=== PATIENT | female | born 1980 | race Caucasian/White ===

== ENCOUNTER 2016-07-04 13:56 | Observation (INO) | payer MEDICARE ==
[~2016-07-04 13:56] MED LIST: ADVAIR 250/501 DISK INH; ALBUTEROL2.5 MG/3 M INH; ALLEGRA 60 MG T60 MG PO; ALLEGRA-D1 TAB.SR1 PO; FLORASTOR250 MG PO; FLUTICASONE PRO16 GM PO; IBUPROFEN800 MG PO; IPRAT-ALBUT 0.5-3 ML UPD; LAMICTAL200 MG PO; LITHIUM CARBON150 MG PO; MUCINEX DM ER1 EAC1 PO; OMNICEF300 MG PO; ONDANSETRON4 MG/2 M3 IV; PREDNISONE10 MG PO; PREDNISONE20 MG PO; PROZAC20 MG PO; SINGULAIR10 MG PO; VALIUM 2 MG TAB2 MG PO; ZPAK PO
[2016-07-04 15:19] LABS: BASOPHILS 0.6 % (0.0-2.0); EOSINOPHILS 7.1 % (0-7); HEMATOCRIT 43.7 % (36.0-48.0); HEMOGLOBIN 14.7 g/dL (12-16); IMMATURE GRANULOCYTES 0.4 % (0-5); LYMPHOCYTES 25.6 % (15-50); MCH 31.6 pg (26.0-34.0); MCHC 33.6 g/dL (31.0-37.0); MEAN PLATELET VOLUME 11.2 fL (7.4-10.4); MONOCYTES 11.4 % (2-11); NEUTROPHILS 54.9 % (40-80); PLATELET COUNT 273 10x3/uL (130-400); RBC 4.65 10x6/uL (4.00-5.40); RDW 12.7 % (11.5-14.5)
[2016-07-04 15:39] LABS: ALBUMIN 3.4 g/dL (3.4-5.0); ALKALINE PHOSPHATASE 66 U/L (46-116); ALT (SGPT) 80 U/L (10-68); CALC OSMOLALITY 279 mosm/kg (275-300); CARBON DIOXIDE 26.1 mmol/L (21.0-32.0); CHLORIDE - SERUM 103 mmol/L (98-107); POTASSIUM - SERUM 3.7 mmol/L (3.5-5.1); PROTEIN - SERUM 7.2 g/dL (6.4-8.2); SODIUM 139 mmol/L (136-145); UREA NITROGEN 17 mg/dL (7-18); eGFR NON AFRICAN AMERICAN 67 mL/min (90-120)
[2016-07-04 15:41] LABS: GLUCOSE 100 mg/dL (74-106)
[2016-07-04 15:49] LABS: PRO BNP 50 pg/mL (0-125)
[2016-07-04 15:50] LABS: CREATINE KINASE 8278 UL (21-215); TROPONIN-I < 0.017 ng/mL (0.000-0.060)
[2016-07-04 16:12] LABS: CKMB 1.7 U/L (0.0-3.6)
--- NOTE | 2016-07-04 18:54 | NUR ---
RECEIVED VIA WHEELCHAIR TO ROOM FROM THE ED. WILL ADMIT
--- NOTE | 2016-07-04 19:00 | NUR ---
PATIENT STATES THAT THESE ARE NOT ALL HER MEDS AND SHE WILL GET US A LIST AFTER SHE EATS. WILL PASS THIS ALONG TO THE NEXT NURSE.
[2016-07-04 20:00] VITALS: BP 163/94
--- NOTE | 2016-07-04 21:23 | NUR ---
RESTING IN BED TALKING ON PHONE. ALERT ORIENTED CONVERSANT. DENIES NEEDS. NO ACUTE DISTRESS NOTED.
--- NOTE | 2016-07-04 22:22 | NUR ---
CONTACTED [facility] TO REQUEST PT HOME VALIUM BE RESTARTED. WAS INSTRUCTED TO ENTER CONSULT FOR PULMONOLOGY.
[2016-07-05] VITALS: BP 108/60
--- NOTE | 2016-07-05 01:37 | NUR ---
PT NOW STATING THAT SHE DOES NOT WANT VALIUM BECAUSE OF ANXIETY. STATED THAT SHE WANTS IT BECAUSE OF ALL THE STEROIDS SHES ON.
--- NOTE | 2016-07-05 02:09 | NUR ---
LYING IN BED WITH EYES CLOSED, CALL LIGHT IN REACH. WILL CONTINUE WITH PLAN OF CARE.
[2016-07-05 04:00] VITALS: BP 115/77
[2016-07-05] MEDS ORDERED: HYDROCODON-ACE1 EAC7 PO (05:12)
[2016-07-05] MEDS ORDERED: VALIUM5 MG PO (05:13)
[2016-07-05] MEDS ORDERED: ADDERALL XR 3030 MG PO (05:13)
[2016-07-05] MEDS ORDERED: LITHIUM CARB CAP 300 PO (05:15)
[2016-07-05] MEDS ORDERED: IBUPROFEN800 MG PO (05:16)
[2016-07-05] MEDS ORDERED: TEMAZEPAM30 MG PO (05:19)
[2016-07-05 05:25] LABS: BASOPHILS 0 % (0.0-2.0); EOSINOPHILS 0 % (0-7); HEMATOCRIT 42.3 % (36.0-48.0); HEMOGLOBIN 14.3 g/dL (12-16); IMMATURE GRANULOCYTES 0.2 % (0-5); LYMPHOCYTES 10.3 % (15-50); MCHC 33.8 g/dL (31.0-37.0); MEAN PLATELET VOLUME 11.5 fL (7.4-10.4); MONOCYTES 2.3 % (2-11); NEUTROPHILS 87.2 % (40-80); PLATELET COUNT 276 10x3/uL (130-400); RBC 4.61 10x6/uL (4.00-5.40); RDW 12.4 % (11.5-14.5); WBC 8.5 10x3/uL (4.8-10.8)
[2016-07-05 05:35] LABS: MCV 91.8 fL (80.0-100.0)
[2016-07-05 06:06] LABS: CALC OSMOLALITY 277 mosm/kg (275-300); CALCIUM 8.8 mg/dL (8.5-10.1); CHLORIDE - SERUM 103 mmol/L (98-107); CKMB 1.4 U/L (0.0-3.6); GLUCOSE 134 mg/dL (74-106); POTASSIUM - SERUM 3.3 mmol/L (3.5-5.1); SODIUM 138 mmol/L (136-145); UREA NITROGEN 13 mg/dL (7-18)
[2016-07-05 06:15] LABS: CREATINE KINASE 5159 UL (21-215); CREATININE - SERUM 0.7 mg/dL (0.6-1.3); TROPONIN-I < 0.017 ng/mL (0.000-0.060); eGFR NON AFRICAN AMERICAN > 90 mL/min (90-120)
--- NOTE | 2016-07-05 08:02 | NUR ---
ASSESSMENT DONE. PT SLEEPING. EASILY AWAKEN. DENIES NEEDS. STATES "I JUST WANT TO 'FUCKING' GO HOME." PT REFUSING TO WEAR O2. REFUSES TO ALLOW NURSE TO ASSESS IV OR LISTEN TO LUNGS. CALL LIGHT WITH IN REACH. WILL CONT. TO MONITOR. PT'S BREAKFAST TRAY SITTING ON BEDSIDE TABLE.
[2016-07-05 08:06] VITALS: BP 126/61
--- NOTE | 2016-07-05 09:25 | NUR ---
PT SITTING UP IN BED WHEN NURSE ENTERED ROOM. STATES " DO I NOT GET ANY "GODDAMN" FOOD. NURSE EXPLAINED TO PT THAT HER BREAKFAST WAS IN THE ROOM SITTING ON THE BEDSIDE TABLE EARLIER WHEN NURSE FIRST ENTERED ROOM. PT STATES " WELL, DO THEY JUST COME IN AND TAKE IT WITHOUT SAYING SOMETHING FIRST." NURSE STATES KITCHEN STAFF WILL USUALLY ASK IF PT'S WISH TO KEEP THEIR TRAY OR NOT. PT REFUSES TO TAKE PO MEDS WITH OUT FOOD. NURSE OFFERED 3 DIFFERENT TIMES TO GET PT MORE FOOD. PT REFUSED EACH TIME. PT STATES "I JUST WANT THE FUCK OUT OF THE GODDAMN PLACED." NURSE PLACED CALL LIGHT WITH IN PT'S REACH AND ENCOURAGED PT TO CALL WITH NEEDS. REPORTED PT'S ACTIONS TO TY RN/BIOLOGICAL SCIENCES PROFESSOR.
--- NOTE | 2016-07-05 11:11 | NUR ---
NURSE WENT INTO PT'S ROOM. PT SITTING UP IN BED TALKING ON CELL PHONE AND STATES " I AM TRYING TO CALL MY REAL DOCTOR, DR. MARRERO, SO HE CAN CALL THIS DOCTOR BITCH UP HERE AND GET ME MY ANXIETY MEDICATION ORDERED." PT WENT ON TO SAY " I HATE THIS FUCKING PLACE. YOU GUYS WON'T EVEN FEED ME!" NURSE REMINDED PT THAT THIS NURSE OFFERED TO GET HER A NEW BREAKFAST TRAY 3 DIFFERENT TIMES AND SHE REFUSED. NURSE ATTEMPTED TO REMIND PT THAT WE WERE HERE TO HELP HER, AND I LET HER KNOW I TALKED TO DR. PAIGE ABOUT HER AND HE WOULD BE HERE SOON TO SEE HER. SHE WOULD NOT STOP CURSING OR YELLING THE ENTIRE TIME THIS NURSE WAS TRYING TO EMPATHIZE ABOUT THE SITUATION. NURSE FINALLY TOLD PT THAT I WAS NOT GOING TO STAY IN THE ROOM WITH HER AND LISTEN TO HER YELL AND CURSE OUR FACILITY AND DOCTOR. NURSE TOLD PT TO USE CALL BUTTON WHEN SHE WAS READY TO TALK, AND THAT THIS NURSE WOULD BE HAPPY TO ASSIST IN WHATEVER I COULD HELP WITH. PIGMENT FURNACE TENDER TOLD THIS NURSE THAT PT REQUESTED A NEW NURSE. TY RN/HUMAN RESOURCES TALENT MANAGER NOTIFIED OF THIS.
--- NOTE | 2016-07-05 11:37 | NUR ---
PATIENT REFUSED AM MEDS THIS MORNING BUT WANTS THEM NOW. ADMINISTERED HER AM MEDS.
[2016-07-05 12:00] VITALS: BP 118/71
--- NOTE | 2016-07-05 13:16 | NUR ---
RATIONALE FOR SCD'S EXPLAINED. REFUSED SCD'S
[2016-07-05 13:43] LABS: ALBUMIN 3.2 g/dL (3.4-5.0); BILIRUBIN - DIRECT 0.07 mg/dL (0.00-0.30); BILIRUBIN - INDIRECT 0.13 mg/dL (0.00-1.00); BILIRUBIN - TOTAL 0.2 mg/dL (0.2-1.3); PROTEIN - SERUM 6.3 g/dL (6.4-8.2)
[2016-07-05] MEDS ORDERED: PREDNISONE10 MG PO (15:52)
[2016-07-05 15:56] LABS: ALBUMIN 3.5 g/dL (3.4-5.0); ALKALINE PHOSPHATASE 63 U/L (46-116); ALT (SGPT) 82 U/L (10-68); BILIRUBIN - DIRECT 0.07 mg/dL (0.00-0.30); BILIRUBIN - INDIRECT 0.13 mg/dL (0.00-1.00); CREATINE KINASE 3240 UL (21-215); PROTEIN - SERUM 7.4 g/dL (6.4-8.2); TROPONIN-I < 0.017 ng/mL (0.000-0.060)
[2016-07-05 16:00] VITALS: BP 145/81
--- NOTE | 2016-07-05 16:45 | NUR ---
DC TEACHING COMPLETE AND IV REMOVED NO OTHER NEEDS AT THIS ITME. WILL CONTINUE TO MONITOR.
== END 2016-07-05 17:01 | disposition home or self-care (01) ==
LOC: D.ER 13:56 → D.M2 17:56 → OBSVTIME 17:56 → D.M2 07-05 17:01
PROVIDERS: Emergency Medicine; Nurse Practitioner Family; ADMIT Family Medicine
DX: J45.901 Unspecified asthma with (acute) exacerbation (principal); F41.9 Anxiety disorder, unspecified; F31.9 Bipolar disorder, unspecified

== ENCOUNTER 2017-05-19 13:09 | Emergency (ER) | payer MEDICARE ==
[~2017-05-19 13:09] MED LIST changes: +ADDERALL XR 3030 MG PO; +HYDROCODON-ACE1 EAC7 PO; +LITHIUM CARB CAP 300 PO; +TEMAZEPAM30 MG PO; +VALIUM5 MG PO
== END 2017-05-19 19:33 | disposition home or self-care (01) ==
LOC: D.ER 13:09
DX: J45.901 Unspecified asthma with (acute) exacerbation (principal)

== ENCOUNTER 2019-04-23 15:09 | Inpatient (IN) | payer MEDICARE ==
[~2019-04-23] VITALS: Ht 167.6 cm; Wt 87.3 kg
[2019-04-23 15:28] LABS: BASOPHILS 0.4 % (0-2); EOSINOPHILS 5.6 % (0-7); HEMOGLOBIN 15.7 g/dL (12-16); IMMATURE GRANULOCYTES 0.4 % (0-5); LYMPHOCYTES 23.1 % (15-50); MCH 31.6 pg (26.0-34.0); MCHC 34.1 g/dL (31.0-37.0); MCV 92.6 fL (80.0-100.0); MONOCYTES 13.3 % (2-11); NEUTROPHILS 57.2 % (40-80); PLATELET COUNT 319 10x3/uL (130-400); RBC 4.97 10x6/uL (4.00-5.40); RDW 12.8 % (11.5-14.5); WBC 14.6 10x3/uL (4.8-10.8)
[2019-04-23 15:42] LABS: APTT 29.2 SECONDS (22.8-39.4); INR 1.02 (0.85-1.17); PROTIME 12.9 SECONDS (11.6-15.0)
[2019-04-23 15:47] LABS: CALC OSMOLALITY 277 mosm/kg (275-300); CALCIUM 9.2 mg/dL (8.5-10.1); CHLORIDE - SERUM 101 mmol/L (98-107); CREATININE - SERUM 0.7 mg/dL (0.6-1.3); GLUCOSE 94 mg/dL (74-106); SODIUM 138 mmol/L (136-145); UREA NITROGEN 17 mg/dL (7-18); eGFR NON AFRICAN AMERICAN > 90 mL/min (90-120)
[2019-04-23 15:59] LABS: ALBUMIN 3.4 g/dL (3.4-5.0); ALKALINE PHOSPHATASE 96 U/L (46-116); ALT (SGPT) 65 U/L (10-68); BILIRUBIN - TOTAL 0.45 mg/dL (0.2-1.3); CKMB 4.2 U/L (0.0-3.6); CREATINE KINASE 207 UL (21-215); PRO BNP 163 pg/mL (0-125); PROTEIN - SERUM 7.8 g/dL (6.4-8.2)
[2019-04-23 16:00] LABS: TROPONIN-I < 0.017 ng/mL (0.000-0.060)
--- NOTE | 2019-04-23 17:30 | NUR ---
MAGNESIUM INFUSION INITIATED AT 1540, COMPLETE AT 1640.
[2019-04-23 17:49] VITALS: BP 142/61
--- NOTE | 2019-04-23 18:14 | NUR ---
PT LYING IN BED, RESPIRATIONS EVEN AND UNLABORED. O2 IN PLACE AT 2LPM. IV INFUSING ORDERED WITHOUT SIGNS OF INFILTRATION. CALL LIGHT IN REACH, PT DENIES ANY NEEDS. WILL CONTINUE TO MONITOR.
--- NOTE | 2019-04-23 19:00 | NUR ---
HAND OFF REPORT GIVEN TO SHERINE GRIJALVA
--- NOTE | 2019-04-23 19:35 | MORECARE ---
CASE MANAGEMENT DISCHARGE SUMMARY PATIENT: JYTOI HURST UNIT: [id number] ADM DATE: 04/23/19 AGE: 39 : 82 SEX: F ROOM/BED: D.1205 AUTHOR: GENNA,DOC PHYSICIAN: REFERRING PHYSICIAN: DONY MOREJON MD DATE OF SERVICE: 04/23/19 Discharge Plan Patient Name: JYOTI HURST Facility: [facility]:[place] : 1980 Planned Disposition: Home Anticipated Discharge Date: 04/26/19 Discharge Date: Expected LOS: 3 Initial Reviewer: [email or web address] Initial Review Date: 04/23/2019 Generated: 04/23/19 8:35 pm DCP- Discharge Planning Updated by [email or web address]: Maye Smith on 04/23/19 6:[address] DC PLAN: Return home with her significant other independently. ANTICIPATED DC NEEDS: Denied known dc needs. CM met with patient to complete initial dc planning assessment. CM educated patient on the CM role and verbal consent given by patient to complete assessment. CM verified patient's address, phone number, and emergency contact phone numbers. Patient lives at home with her significant other. She reports she is independent in her care and is able to work. At discharge patient plans to return home and feels this is a safe discharge. CM discussed availability of home health, rehab services, and medical equipment. Patient denied known discharge needs at this time. Transportation provider at discharge will be her significant other. CM will continue to follow and will assist as needed with dc plans/needs. aMye Smith RN, [facility] DCPIA - Discharge Planning Initial Assessment Updated by [email or web address]: Maye Smith on 04/23/19 7:30 pm * Is the patient Alert and Oriented? Yes * How many steps to enter\exit or inside your home? 14 * PCP Dr. Jin in [place] * Pharmacy [facility] * Preadmission Environment Home with Family * ADLs Independent * Equipment Nebulizer * List name and contact numbers for known caregivers / representatives who currently or will assist patient after discharge: Clarisa Matt - sig other - [phone] * Verbal permission to speak to the caregivers and representatives has been obtained from the patient. Yes * Community resources currently utilized None * Additional services required to return to the preadmission environment? No * Can the patient safely return to the preadmission environment? Yes * Has this patient been hospitalized within the prior 30 days at any hospital? No Patient Name: JYOTI HURST Page [id number] at 193 All edits/amendments must be made on the electronic document DICTATION DATE: 04/23/191934 STORE TEAM MEMBER: LIZA 04/23/191934 RPT#: [id number] DC DATE: STATUS: ADM IN [facility] [address] [place] [address] END OF REPORT
[2019-04-23 20:20] VITALS: BP 121/82; Ht 167.6 cm; Wt 87.3 kg
[2019-04-23 20:30] VITALS: BP 121/82
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
[2019-04-24 00:09] VITALS: BP 124/80
[2019-04-24 04:17] VITALS: BP 126/79
[2019-04-24 07:29] VITALS: BP 116/56
[2019-04-24 08:44] LABS: BASOPHILS 0 % (0-2); EOSINOPHILS 0 % (0-7); IMMATURE GRANULOCYTES 0.3 % (0-5); MCH 31.4 pg (26.0-34.0); MCHC 34.1 g/dL (31.0-37.0); MCV 92.1 fL (80.0-100.0); MEAN PLATELET VOLUME 10.8 fL (7.4-10.4); MONOCYTES 1.1 % (2-11); NEUTROPHILS 91.6 % (40-80); PLATELET COUNT 272 10x3/uL (130-400); RBC 4.78 10x6/uL (4.00-5.40); RDW 12.8 % (11.5-14.5); WBC 15.9 10x3/uL (4.8-10.8)
[2019-04-24 09:04] LABS: CALC OSMOLALITY 282 mosm/kg (275-300); CALCIUM 8.9 mg/dL (8.5-10.1); CARBON DIOXIDE 26.2 mmol/L (21.0-32.0); CHLORIDE - SERUM 102 mmol/L (98-107); CREATININE - SERUM 0.8 mg/dL (0.6-1.3); GLUCOSE 212 mg/dL (74-106); MAGNESIUM - SERUM 2.1 mg/dL (1.8-2.4); PHOSPHOROUS 3.1 mg/dL (2.5-4.9); POTASSIUM - SERUM 3.2 mmol/L (3.5-5.1); SODIUM 138 mmol/L (136-145); UREA NITROGEN 16 mg/dL (7-18); eGFR NON AFRICAN AMERICAN 85 mL/min (90-120)
--- NOTE | 2019-04-24 09:52 | NUR ---
PT ALERT X 4. BREATH SOUNDS CLEAR BILAT. TELEMETRY IN PLACE. PT REPORTING IMPROVED CONDITION. IV TO RIGHT AC, SALINE LOCKED. PT REPORTING NO PAIN AT THIS TIME. BED LOW, CALL LIGHT IN REACH. NO OTHER NEEDS AT THIS TIME.
[2019-04-24 12:20] VITALS: BP 140/76
[2019-04-24 15:54] VITALS: BP 121/82
--- NOTE | 2019-04-24 17:04 | MORECARE ---
CASE MANAGEMENT DISCHARGE SUMMARY PATIENT: JYOTI HURST UNIT: [id number] ADM DATE: 04/23/19 AGE: 39 : 82 SEX: F ROOM/BED: D.1205 AUTHOR: OZZIE VAIL PHYSICIAN: REFERRING PHYSICIAN: DONY MOREJON MD DATE OF SERVICE: 04/24/19 Discharge Plan Patient Name: JYOTI HURST Facility: [facility]:[place] : 1980 Planned Disposition: Home Anticipated Discharge Date: 04/26/19 Discharge Date: Expected LOS: 3 Initial Reviewer: [email or web address] Initial Review Date: 04/23/2019 Generated: 04/24/19 6:04 pm Comments DCP- Discharge Planning Updated by [email or web address]: Bre Mcgee on 04/24/19 3:[address] Patient Name: JYOTI HURST Admission Status: ER Accout number: [id number] Admission Date: 04-23-2019 : 1980 Admission Diagnosis: Attending: DONY MOREJON Current LOS: 1 Anticipated DC Date: 04-26-2019 Planned Disposition: Home Primary Insurance: MEDICARE A & B Discharge Planning Comments: PATIENT IS CRYING, STATES SHE REALLY NEEDS TO DISCHARGE TODAY. STATES SHE HAS TO WORK TOMORROW, STATES SHE HAS NO CHOICE. STATES SHE HAS NEBS AND DUONEBS AT HOME, AND IS BETTER TODAY. PRIMARY NURSE IS AWARE AND DR. PAIGE AND DR. MOREJON HAVE BEEN PAGED. CM TO FOLLOW AND ASSIST NEEDED. Firearms Instructor: Bre Mcgee DCP- Discharge Planning Updated by [email or web address]: Maye Smith on 04/23/19 6:[address] DC PLAN: Return home with her significant other independently. ANTICIPATED DC NEEDS: Denied known dc needs. CM met with patient to complete initial dc planning assessment. CM educated patient on the CM role and verbal consent given by patient to complete assessment. CM verified patient's address, phone number, and emergency contact phone numbers. Patient lives at home with her significant other. She reports she is independent in her care and is able to work. At discharge patient plans to return home and feels this is a safe discharge. CM discussed availability of home health, rehab services, and medical equipment. Patient denied known discharge needs at this time. Transportation provider at discharge will be her significant other. CM will continue to follow and will assist as needed with dc plans/needs. Maye Smith RN, [facility] DCPIA - Discharge Planning Initial Assessment Updated by [id number]: Maye Smith on 04/23/19 7:30 pm * Is the patient Alert and Oriented? Yes * How many steps to enter\exit or inside your home? 14 * PCP Dr. Jin in [place] * Pharmacy [facility] * Preadmission Environment Home with Family * ADLs Independent * Equipment Nebulizer * List name and contact numbers for known caregivers / representatives who currently or will assist patient after discharge: [facility] Matt - sig other - [phone] * Verbal permission to speak to the caregivers and representatives has been obtained from the patient. Yes * Community resources currently utilized None * Additional services required to return to the preadmission environment? No * Can the patient safely return to the preadmission environment? Yes * Has this patient been hospitalized within the prior 30 days at any hospital? No Last DP export: 04/23/19 6:35 Patient Name: JYOTI HURST Page 15541 at 1704 All edits/amendments must be made on the electronic document DICTATION DATE: 04/24/191703 GROMMET WORKER: LIZA 04/24/191703 RPT#: [id number] DC DATE: STATUS: ADM IN [facility] [address] [place] [address] END OF REPORT
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
--- NOTE | 2019-04-25 09:04 | MORECARE ---
CASE MANAGEMENT DISCHARGE SUMMARY PATIENT: JYOTI HURST UNIT: [id number] ADM DATE: 04/23/19 AGE: 39 : 82 SEX: F ROOM/BED: D.1205 AUTHOR: OZZIE VAIL PHYSICIAN: REFERRING PHYSICIAN: DONY MOREJON MD DATE OF SERVICE: 04/25/19 Discharge Plan Patient Name: JYOTI HURST Facility: [facility]:[place] : 1980 Planned Disposition: Home Anticipated Discharge Date: 04/26/19 Discharge Date: 04/24/2019 Expected LOS: 3 Initial Reviewer: [email or web address] Initial Review Date: 04/23/2019 Generated: 04/25/19 10:04 am Comments DCP- Discharge Planning Updated by [email or web address]: Bre Mcgee on 04/24/19 3:[address] Patient Name: JYOTI HURST Admission Status: ER Accout number: [id number] Admission Date: 04-23-2019 : 1980 Admission Diagnosis: Attending: DONY MOREJON Current LOS: 1 Anticipated DC Date: 04-26-2019 Planned Disposition: Home Primary Insurance: MEDICARE A & B Discharge Planning Comments: PATIENT IS CRYING, STATES SHE REALLY NEEDS TO DISCHARGE TODAY. STATES SHE HAS TO WORK TOMORROW, STATES SHE HAS NO CHOICE. STATES SHE HAS NEBS AND DUONEBS AT HOME, AND IS BETTER TODAY. PRIMARY NURSE IS AWARE AND DR. PAIGE AND DR. MOREJON HAVE BEEN PAGED. CM TO FOLLOW AND ASSIST NEEDED. Whistle Punk: Bre Mcgee DCP- Discharge Planning Updated by [email or web address]: Maye Smith on 04/23/19 6:[address] DC PLAN: Return home with her significant other independently. ANTICIPATED DC NEEDS: Denied known dc needs. CM met with patient to complete initial dc planning assessment. CM educated patient on the CM role and verbal consent given by patient to complete assessment. CM verified patient's address, phone number, and emergency contact phone numbers. Patient lives at home with her significant other. She reports she is independent in her care and is able to work. At discharge patient plans to return home and feels this is a safe discharge. CM discussed availability of home health, rehab services, and medical equipment. Patient denied known discharge needs at this time. Transportation provider at discharge will be her significant other. CM will continue to follow and will assist as needed with dc plans/needs. Maye Smith RN, [facility] DCPIA - Discharge Planning Initial Assessment Updated by [email or web address]: Maey Smith on 04/23/19 7:30 pm * Is the patient Alert and Oriented? Yes * How many steps to enter\exit or inside your home? 14 * PCP Dr. Jin in [place] * Pharmacy [facility] * Preadmission Environment Home with Family * ADLs Independent * Equipment Nebulizer * List name and contact numbers for known caregivers / representatives who currently or will assist patient after discharge: [facility] Matt - sig other - [phone] * Verbal permission to speak to the caregivers and representatives has been obtained from the patient. Yes * Community resources currently utilized None * Additional services required to return to the preadmission environment? No * Can the patient safely return to the preadmission environment? Yes * Has this patient been hospitalized within the prior 30 days at any hospital? No Last DP export: 04/24/19 4:04 Patient Name: JYOTI HURST Page [id number] at 0904 All edits/amendments must be made on the electronic document DICTATION DATE: 04/25/19903 ENVIRONMENTAL FIELD SERVICES TECHNICIAN: LIZA 04/25/19903 RPT#: [id number] DC DATE:04/24/19 STATUS: DIS IN [facility] [address] [place] [address] END OF REPORT
== END 2019-04-24 17:05 | disposition left against medical advice (07) | DRG 202 ==
LOC: D.ER 15:09 → D.M3 18:17
PROVIDERS: Family Medicine; ADMIT Family Medicine; ATTEND Family Medicine
DX: J20.9 Acute bronchitis, unspecified (principal); J45.901 Unspecified asthma with (acute) exacerbation; E87.6 Hypokalemia; F41.8 Other specified anxiety disorders